=== PATIENT | female | born 1935 | race Caucasian/White ===

== ENCOUNTER 2018-07-08 20:46 | Emergency (ER) | payer MEDICARE, OTHER ==
[~2018-07-08] VITALS: Ht 162.6 cm; Wt 69.0 kg
[2018-07-08 20:58] VITALS: Ht 162.6 cm; Wt 69.0 kg
[2018-07-08] MEDS ORDERED: ONDANSETRON 4 MG INJ IV STA (21:09)
[2018-07-08] MEDS ORDERED: morphine 4 MG/ML VIAL IV STA (21:09)
[2018-07-08] MEDS ORDERED: PROPOFOL 200 MG INJ IV STA (21:57)
[2018-07-08] MEDS ORDERED: HYDR-4011 PO (22:53)
[2018-07-08] MEDS ORDERED: DOCU-144 PO (22:53)
[2018-07-08] MEDS ORDERED: NALO4SPR NS (22:53)
--- NOTE | 2018-07-08 22:57 | ERD ---
ER Documentation Chief Complaint Chief Complaint tonia pruitt fall arm pain- deformity on L arm HPI Patient is an 82-year-old female with coronary disease, hypertension, and high cholesterol who presents with a fall and wrist pain. She was brought in by ambulance. She fell down 3 stairs onto her outstretched left wrist. She has left wrist pain and deformity and swelling. This happened just prior to arrival. She is right-handed. The patient has had no treatment as of yet. ROS All systems reviewed and are negative except as per history of present illness. Medications Home Meds Active Scripts Docusate Sodium* (Colace*) 100 Mg Capsule, 100 MG PO TID, #30 CAP Prov:FRANSISCO RANDOLPH MD 07/08/18 Naloxone HCl nasal spray (Narcan 4 mg/0.1 mL nasal) 4 Mg [place], 4 MG NS .Q2-3MIN for OPIOID OVERDOSE, #2 SPRAY 0 Refills [place] 0.1 mL into one nostril. Repeat with second device into other nostril after 2-3 minutes if no or minimal response Prov:FRANSISCO RANDOLPH MD 07/08/18 Hydrocodone/Acetaminophen (Wellington 5-325 Tablet) 1 Each Tablet, 1 TAB PO Q6H PRN for PAIN, #12 TAB Prov:FRANSISCO RANDOLPH MD 07/08/18 Allergies Allergies: Coded Allergies: No Known Allergy (Unverified , 07/08/18) PMhx/Soc History of Surgery: Yes (c-spine repair, appendectomy, thyroidectomy) Anesthesia Reaction: No Hx Neurological Disorder: No Hx Respiratory Disorders: No Hx Cardiac Disorders: Yes (HTN, cholesterol) Hx Psychiatric Problems: No Hx Miscellaneous Medical Probl: Yes (osteoporosis) Hx Alcohol Use: No Hx Substance Use: No Hx Tobacco Use: No Smoking Status: Never smoker FmHx Family History: No diabetes Physical Exam Vitals Vital Signs Date Temp Pulse Resp B/P (MAP) Pulse Ox O2 O2 Flow FiO2 Time Delivery Rate 07/08/18 57 22 124/60 100 Room Air 21:05 (81) 07/08/18 97.0 60 20 124/66 99 20:58 (85) Physical Exam Const: Moderate distress Head: Atraumatic Eyes: Normal Conjunctiva ENT: Normal External Ears, Nose and Mouth. Neck: Full range of motion. No meningismus. Resp: Clear to auscultation bilaterally Cardio: Regular rate and rhythm, no murmurs Abd: Soft, non tender, non distended. Normal bowel sounds Skin: No petechiae or rashes Back: No midline or flank tenderness Ext: Left-sided wrist pain, deformity, tenderness to palpation Neur: Awake and alert Psych: Normal Mood and Affect Results 24 hrs Current Medications Medications Dose Sig/Flaquita Start Time Status Last (Trade) Ordered Route PRN Stop Time Admin Dose Reason Admin Morphine 4 mg ONCE STAT 07/08/18 DC 07/08/18 Sulfate IV 21:09 21:14 (morphine) 07/08/18 21:10 Ondansetron 4 mg ONCE STAT 07/08/18 DC 07/08/18 HCl (Zofran IV 21:09 21:13 Inj) 07/08/18 21:10 Propofol 200 mg ONCE STAT 07/08/18 DC 07/08/18 (Diprivan) IV 21:57 22:31 07/08/18 21:59 Procedures/MDM Procedural Sedation: Pre-assessment performed. See preceding complete history and physical for details. Time out performed. See sedation documentation for details. Risk, benefits and alternatives were discussed with the patient. Medication(s): Propofol 60 mg IV Complications: No hypoxic or apneic events ASA Class: 2 Recovered without incident. A minimum of 16 minutes of face to face time was performed including preparation, sedation and recovery time. Reduction by me: Anesthesia: Propofol 60 mg IV Location: Left wrist Technique: Gentle traction and manipulation Results: Rastafari of normal anatomic positioning Neurovascularly intact post procedure. Splint Note Type: Lydia conroy Location: Left wrist Indication: Colles' fracture Splint Assessment: Neurovascularly intact post splint placement with good fit. Smoking Cessation Therapy: Pt. was lectured for greater than 3 minutes on the health risks of continued smoking and the benefits of cessation. Patient will be discharged and will need to follow-up with orthopedic surgery within 3 days. I have given her information for Dr. Casas but she can follow-up with the orthopedic surgeon of her choice. She will be given [place], Narcan, and Colace. She can return for any worsening symptoms. I doubt other serious traumatic injury. She will likely require orthopedic fixation by an orthopedic surgeon. Departure Diagnosis: Primary Impression: Colles' fracture Encounter type: initial encounter Fracture type: closed Laterality: left Qualified Codes: S52.532A - Colles' fracture of left radius, initial encounter for closed fracture Condition: Fair Patient Instructions: Colles Fracture, Reduction Required Referrals: JESENIA CASAS MD Additional Instructions: SPECIALIST: YOU HAVE A MEDICAL CONDITION WHICH REQUIRES YOU TO SEE A SPECIALIST WITHIN THE NEXT 1-2 DAYS. PLEASE FOLLOW UP WITH YOUR PRIMARY PHYSICIAN FOR REFFERAL.IF YOU DO NOT HAVE A PRIMARY CARE PHYSICIAN AND/OR YOU CAN NOT AFFORD TO SEE A PHYSICIAN THE FOLLOWING RESOURCES HAVE BEEN SUPPLIED TO YOU. IT IS YOUR RESPONSIBILITY TO BE SEEN BY THE SPECIALIST FRANSISCO RANDOLPH MD Jul 08, 2018 22:57
[2018-07-08 23:16] VITALS: BP 137/62; PULSE 63; RESP 14
== END 2018-07-08 23:15 | disposition home or self-care (01) ==
LOC: E/R 20:46
DX: S52.532A Colles' fracture of left radius, initial encounter for closed fracture (principal); I10 Essential (primary) hypertension; I25.10 Atherosclerotic heart disease of native coronary artery without angina pectoris; W10.8XXA Fall (on) (from) other stairs and steps, initial encounter; Y92.9 Unspecified place or not applicable
CPT/HCPCS: 25505; 73110; 94770; 96374; 96375; 99285; J2270; J2405